=== PATIENT | female | born 1955 | race Caucasian/White ===

== ENCOUNTER 2017-11-10 11:02 | Emergency (ER) | payer BC, SELFPAY ==
[2017-11-10 11:03] VITALS: BP 163/135; PULSE 79; RESP 15; TEMP 36.7; O2SAT 98; BMI 32.5
[2017-11-10 11:20] VITALS: PULSE 70; RESP 16; O2SAT 96
--- NOTE | 2017-11-10 11:31 | CT_ITS ---
STUDY: CT BRAIN WITHOUT CONTRAST REASON FOR EXAM: Female, 62 years old. Headache and blurred vision. RADIATION DOSAGE (If Supplied By Facility): CTDIvol = ( 44.99 ) mGy, DLP = ( 762.36 ) mGycm TECHNIQUE: Transaxial CT imaging of the brain was performed without administration of intravenous contrast material. Multiplanar reformations are submitted for interpretation. Individualized dose optimization techniques were used for this CT. COMPARISON: None. FINDINGS: Normal soft tissue structures. Normal calvarium. There is mild cerebral atrophy with widening of the extra-axial spaces and ventricular dilatation. There are areas of decreased attenuation within the white matter tracts of the supratentorial brain, consistent with microvascular disease changes. Normal basal ganglia and thalami. Normal brainstem. Normal cerebellum. There is no intracranial hemorrhage. There is minimal atherosclerotic calcification of intracranial arteries. Normal visualized paranasal sinuses. CT/Brain/Head without Contrast IMPRESSION: 1. Chronic involutional changes of the brain. 2. No CT evidence of acute intracranial hemorrhage. Electronically Signed: Kelli Parson MD at 12:29 EST , Service support ,
[2017-11-10 11:55] LABS: Bedside Glucose 81 mg/dL (70-110)
[2017-11-10 11:56] VITALS: PULSE 68; RESP 16; O2SAT 97
--- NOTE | 2017-11-10 12:43 | ED.DCSUM_ITS ---
- ER Visit Summary Date of Service: 11/10/17 Chief Complaint: Blurred vision History of Present Illness: The patient is a 62 F who has been seen in the [facility] and also sees Dr. Ross. She reports that she was at the computer today at work at 9 AM when she had blurred vision from both eyes. She describes this as difficulty focusing and that her vision was slightly dark. She had no relief with covering one eye. She had no change with removing her glasses and looking closely. States that this is improving but is not resolved. She denies any pain. She reports that she has a headache in the maxillary region bilaterally that is 3 out of 10 severity. She denies any numbness, vertigo, double vision, flashing lights, or floaters. Physical Examination: Vitals: Stable. Afebrile. General: Well-nourished and well-developed. Head: Normocephalic atraumatic. Eyes: Pupils are equal, round, and reactive to light. There is no a fair pupillary defect. There is no conjunctival injection. Extraocular motions are intact without pain. Neck: Supple, no lymphadenopathy. No JVD. Nontender. Cardiovascular: Regular rate and rhythm. No murmurs. Respiratory: No respiratory distress. Clear to auscultation bilaterally. Abdominal: Soft, nontender, nondistended, normal bowel sounds. No guarding, rebound, or peritoneal signs. Back: Nontender. Extremities: Nontender, no edema. Skin: Normal color, no rash. Neurologic: Alert and oriented ?3. Cranial nerves II through XII are intact. Normal strength and sensation. Psych: Normal affect. Test Results: Vitals: Stable. Afebrile. General: Well-nourished and well-developed. Head: Normocephalic atraumatic. Neck: Supple, no lymphadenopathy. No JVD. Nontender. Cardiovascular: Regular rate and rhythm. No murmurs. Respiratory: No respiratory distress. Clear to auscultation bilaterally. Abdominal: Soft, nontender, nondistended, normal bowel sounds. No guarding, rebound, or peritoneal signs. Back: Nontender. Extremities: Nontender, no edema. Skin: Normal color, no rash. Neurologic: Alert and oriented ?3. Cranial nerves II through XII are intact. Normal strength and sensation. Psych: Normal affect. Test results: CT brain shows chronic changes. Visual acuity is 20/50 on the right, 20/50 on the left, and 20/40 bilaterally. Emergency Department Course and Treatment: The patient is resting comfortably without complaint. Treatment Plan: Patient was discussed with Dr. Wild. She will be sent over to his office for further evaluation. Disposition: Discharged in stable condition. Impression: 1. Blurred vision. This note was generated with [employer] dictation software. It may contain incorrect words, spelling, and punctuation that were not noted in review of the chart prior to signing ED Disposition - Plan for ED Patient: Disposition: Home or Assisted Living Chief Complaint: Eye Problem Instructions: ED Blurred Vision Referrals: Rui Wild MD [STAFF PHYSICIAN] - 11/10/17
[2017-11-10 12:47] VITALS: BP 133/87; PULSE 70; RESP 18; O2SAT 100
== END 2017-11-10 12:55 | disposition home or self-care (01) ==
PROVIDERS: Emergency Provider Emergency Medicine
DX: H53.8 Other visual disturbances (principal)
CPT/HCPCS: 70450; 82962; 99282

== ENCOUNTER → 2020-12-15 11:50 | Outpatient (CLI) | payer BC, SELFPAY ==
--- NOTE | 2020-12-15 11:59 | US_ITS ---
STUDY: RENAL ULTRASOUND - COMPLETE REASON FOR EXAM: Female, 65 years old. UTI TECHNIQUE: Ultrasound evaluation of the kidneys was performed with real-time and static persaud-scale imaging. COMPARISON: None. FINDINGS: RIGHT KIDNEY: Normal location of the right kidney, which is normal in size. The right kidney measures 11.3 cm x 5.5 cm x 4.7 cm. There is a normal cortex of the right kidney. The renal cortex measures 1.4 cm. There is no right renal mass or cyst. There are no right renal calculi. There is no right hydronephrosis. DISTAL RIGHT URETER: There is non-visualization of the distal right ureter. There is no demonstrated right ureterovesical junction calculus. There is a visualized right ureteral jet. LEFT KIDNEY: Normal location of the left kidney, which is normal in size. The left kidney measures 10.8 cm x 5 cm x 6 cm. There is a normal cortex of the left kidney. The renal cortex measures 1.5 cm. 2 renal cysts are seen. The larger cyst measures 1.5 cm x 1.5 cm x 1.1 cm. There are no left renal calculi. There is no left hydronephrosis. DISTAL LEFT URETER: There is non-visualization of the distal left ureter. There is no demonstrated left ureterovesical junction calculus. There is a visualized left ureteral jet. BLADDER: The distended urinary bladder has a volume of 100 ml. There is a normal wall thickness of the distended urinary bladder. There is no demonstrated mass within the urinary bladder. There are no demonstrated bladder calculi. US/Kidney and Bladder IMPRESSION: 2 left renal cysts. The largest cyst measures 1.5 cm x 1.5 cm x 1.1 cm. Electronically Signed: Yonatan Sarmiento MD at 15:24 EDT , Service support ,
== END ==
PROVIDERS: PCP Internal Medicine; Referring Provider Urology; Visit Provider Urology
DX: N39.0 Urinary tract infection, site not specified (principal)
CPT/HCPCS: 76770

== ENCOUNTER 2021-03-27 06:08 | Day surgery (SDC) | payer MEDICARE, BC, OTHER, SELFPAY ==
[2021-03-27 06:36] VITALS: BP 141/81; PULSE 72; RESP 16; TEMP 36.4; O2SAT 97; BMI 34.0
[2021-03-27] MEDS: Lactated Ringers 1,000 ML 100 ML IV (07:03)
[2021-03-27] MEDS: Cefazolin 2 GM in 0.9% Normal Saline 100 ML IV (07:26)
--- NOTE | 2021-03-27 07:27 | PCM.DC ---
Discharge Instructions Diet Discharge Diet: No restrictions Activity Discharge Activity: Return to Normal Activity May resume sexual activity in: 10-14 days Dressing / Incision Call your doctor if you observe: Fever of 101 or Higher, Inability to urinate, Inability to have a bowel movement and Uncontrolled pain Follow Up Care Please Follow Up With: Rosalinda Lee MD When: 2-3 weeks in office, call for appt Test Results: Test results from this visit will be discussed in further detail at your follow-up appointment, if applicable. Discharge Plan Admission Attending Provider: Rosalinda Lee Primary Care Provider: Dimitris Donato Discharge Orders/Prescriptions Prescriptions: New oxycodone-acetaminophen [oxycodone-acetaminophen] 1 TABLET tablet 1 tab PO Q8H PRN PRN (Reason: Pain) 3 Days Qty: 6 RF: 0 cephalexin [cephalexin] 500 MG capsule 500 mg PO Q12 3 Days Qty: 6 RF: 0 phenazopyridine [Pyridium] 200 MG tablet 200 mg PO TID PRN PRN (Reason: Bladder Spasms) 7 Days Qty: 30 RF: 0 Continued ascorbic acid (vitamin C) [Vitamin C] 500 mg Tablet 500 mg PO DAILY RF: 0 pantoprazole 40 mg Tablet,Delayed Release (Dr/Ec) 40 mg PO DAILY RF: 0 estradiol 0.01 % (0.1 mg/gram) cream 0.5 g VAGINAL .3 TIMES WEEKLY RF: 0 Referrals / Follow Up: Dimitris Donato MD [Primary Care Provider] - Disposition Disposition (needs filled in before D/C Order can be placed): Home, Self Care
--- NOTE | 2021-03-27 07:31 | PCM.OPRPT ---
Problems Associated Problem List Diagnoses (1) Urinary tract infection: (2) Urethral stenosis: Report of Operation Date of Procedure: 03/27/21 Pre-Operative Diagnosis: Urethral stenosis, urinary tract infection Post-Operative Diagnosis: Same, cystocele Surgery/Procedure Performed:: Urethral dilation, cystourethroscopy Surgeon: Rosalinda Lee Type of Anesthesia: MAC Description of Procedure: The patient is a 66-year-old female with recurrent urinary tract infections who was unable to undergo a cystoscopy in the office secondary to urethral stenosis. She now presents for further evaluation under anesthesia. Informed consent was obtained. The patient was taken to the operating room and placed on the operating room table. Anesthesia monitored the head, neck, airway, IV access and vital signs throughout the case. Once anesthesia was appropriately administered the patient was placed into dorsal lithotomy position was prepped and draped in usual sterile fashion. At this time it was obvious that there is more prolapse than initially thought on examination in the office. The patient has significant rotation of the bladder neck along with a mild cystocele. The urethra was dilated using sounds starting with 16 Tanzanian and ending with 24 Tanzanian. She tolerated this portion of the procedure well. The cystoscope was then inserted through the urethra under direct visualization into the urinary bladder. Bilateral ureteral orifices were located in the area of the trigone. There were no masses, lesions, areas of ulceration or erythema identified. Bilateral ureteral jets were observed. This time the patient's bladder was then emptied and the case was terminated. The patient tolerated the procedure without complication. Grafts/Implants Used: None Complications none Admit VTE Documentation VTE Present on Admission: Yes VTE Mechan Device Prophylaxis: SCD's VTE Pharm Prophylaxis ordered?: No Reason prophylaxis not ordered:: Treatment Not Indicated
[2021-03-27 07:50] VITALS: BP 121/70; BP 141/81; PULSE 60; RESP 16; TEMP 36.3; O2SAT 95
[2021-03-27 07:55] VITALS: BP 121/70; BP 141/81; PULSE 60; RESP 16; O2SAT 95
[2021-03-27 08:00] VITALS: BP 118/71; BP 141/81; PULSE 59; RESP 16; O2SAT 96
[2021-03-27 08:06] VITALS: BP 130/72; BP 141/81; PULSE 59; RESP 16; TEMP 36.1; O2SAT 97
[2021-03-27 08:55] VITALS: BP 122/68; BP 141/81; PULSE 58; RESP 16; TEMP 36.3; O2SAT 98
== END 2021-03-27 08:59 | disposition home or self-care (01) ==
LOC: SDC 06:19 → AC 06:20
PROVIDERS: PCP Internal Medicine; Referring Provider Urology; Visit Provider Urology
PROC: 0T7D8ZZ Dilation of Urethra, Via Natural or Artificial Opening Endoscopic (ICD-10-PCS; CPT 52281; principal; 2021-03-27 07:20)
DX: N35.92 Unspecified urethral stricture, female (principal); N39.0 Urinary tract infection, site not specified; K21.9 Gastro-esophageal reflux disease without esophagitis; Z79.899 Other long term (current) drug therapy; Z87.891 Personal history of nicotine dependence
CPT/HCPCS: 00910; 52281; J7120

== ENCOUNTER → 2022-11-07 | Outpatient (CLI) | payer MEDICARE, OTHER, SELFPAY ==
--- NOTE | 2022-11-07 08:11 | RAD_ITS ---
STUDY: X-RAY - ESOPHAGUS (BARIUM SWALLOW) WITH FLUOROSCOPY REASON FOR EXAM: Female, 67 years old. DYSPHAGIA TECHNIQUE: 15 view(s) of the esophagus were obtained following swallowing of barium. FLUOROSCOPY TIME (if supplied): (36 seconds) minutes/seconds COMPARISON: None. FINDINGS: There is no demonstrated esophageal foreign body. There is no demonstrated stricture or mucosal abnormality. Moderate-sized hiatal hernia without gastroesophageal reflux at this time. The patient ingested a 12 mm tablet of barium without difficulty. Normal visualized aortic arch and descending thoracic aorta. Normal visualized pulmonary parenchyma. Normal visualized osseous structures of the thorax. RAD/Esophagus Dual Contrast IMPRESSION: Moderate sized hiatal hernia without gastroesophageal reflux. Electronically Signed: Yonatan Sarmiento MD at 8:37 EST ,
== END | disposition home or self-care (01) ==
PROVIDERS: PCP Internal Medicine; Visit Provider Internal Medicine Gastroenterology
DX: R13.10 Dysphagia, unspecified (principal)
CPT/HCPCS: 74221

== ENCOUNTER → 2024-04-08 | Outpatient (CLI) | payer OTHER, MEDICARE, SELFPAY ==
[2024-04-08 15:37] LABS: Mucous, Urine 0 SEEN /hpf (<or=2+)
[2024-04-08 15:43] LABS: Color, Urine Yellow (Yellow); Glucose, Dipstick Normal (Normal); Ketone-Dipstick Negative (Negative); Leukocyte Esterase-Dipstick 500 /ul (Negative); Nitrite-Dipstick Negative (Negative); Occult Blood-Urine 25 /ul (Negative); Protein-Dipstick 15 mg/dl (Negative); Urine Bilirubin Dipstick Negative (Negative); Urine Clarity Clear (Clear); Urine Urobilinogen Normal (Normal); Urine pH 6.5 (5.0 - 8.0)
[2024-04-08 15:48] LABS: White Blood Cells 10-25 SEEN /hpf (0-5)
[2024-04-08 15:49] LABS: Bacteria 2+ /hpf (None Seen); Red Blood Cells-Urine 0-5 SEEN /hpf (0-5); Squamous Epithelial Cells - UA 0-5 SEEN /hpf (5-10)
== END | disposition home or self-care (01) ==
LOC: LABSPEC 15:25
PROVIDERS: PCP Internal Medicine; Referring Provider Physician Assistant Surgical; Visit Provider Physician Assistant Surgical
DX: R30.0 Dysuria (principal)
CPT/HCPCS: 81001; 87086; 87088; 87186

== ENCOUNTER 2025-05-18 12:31 | Emergency (ER) | payer MEDICARE, OTHER, SELFPAY ==
[2025-05-18 12:31] VITALS: BP 184/85; PULSE 69; RESP 18; TEMP 36.8; O2SAT 99; BMI 31.8
--- NOTE | 2025-05-18 13:13 | EX.ED.UPPERE ---
HPI History of Present Illness HPI Narrative: Patient presents with left shoulder pain that has been getting worse over the past week and a half. Patient states it is gradually getting worse. Patient states it is worse with certain movements. Patient states nothing makes it better. Patient does admit to some tingling into her left hand and wrist. Patient describes her pain as constant and dull. Patient states it is sharp with certain movements. Patient denies any weakness. Patient denies any direct trauma or injury. Chief Complaint: Upper Extremity Injury Onset/Context/Timing Onset: Weeks (1.5) Context: Gradual Onset Timing: Continuous Quality of Pain: Sharp and Dull Location: Left shoulder Worsened by: Movement Relieved by: Nothing Associated Symptoms Associated Symptoms: Positive for Parasthesia; Negative for Weakness or Loss of Funtion PFSH PFSH Medical History Urinary tract infection Urethral stenosis Wears glasses Alcohol use Injury of back History of hiatal hernia Gastric reflux Former smoker Leg cramps History of edema [place] esophagus Home Medications ?Medication ?Instructions ?Recorded ?Last Taken ?Type ascorbic acid (vitamin C) 500 mg 500 mg PO DAILY 03/20/21 Unknown History tablet (Vitamin C) Held on 05/18/25. Instructions: Order Completed estradiol 0.01% (0.1 mg/gram) 0.5 g vaginal .3 TIMES WEEKLY 03/20/21 Unknown History vaginal cream pantoprazole 40 mg tablet,delayed 40 mg PO DAILY 03/20/21 Unknown History release acetaminophen 650 mg 650 mg PO Q8H PRN pain 05/18/25 Unknown History tablet,extended release hydrocodone-acetaminophen 5-325mg 1 tab PO Q6H PRN PRN Pain 3 days 05/18/25 Unknown Rx 5mg-325mg #10 TABLETS Allergy/AdvReac Type Severity Reaction Status Date / Time meperidine (From Demerol) AdvReac Nausea Verified 05/18/25 12:33 Surgical History History of esophagogastroduodenoscopy (EGD) Hx of tonsillectomy Hx of hysterectomy Hx of colonoscopy Social History Smoking Status: Former smoker ROS ROS ED Constitutional Constitutional ED: Denies chills or fever(s) Eyes Eyes: Denies blurry vision or change in vision ENT ENT ED: Denies rhinorrhea or sore throat Cardiovascular Cardiovascular: Denies chest pain or palpitations Respiratory/Chest Respiratory/Chest: Denies cough or dyspnea Gastrointestinal Gastrointestinal: Reports nausea; Denies vomiting Genitourinary Genitourinary ED: Denies dysuria or hematuria Musculoskeletal Musculoskeletal: Reports neck pain; Denies back pain Integumentary Denies abscess or rash Neurologic Neurologic: Denies headache(s) or weakness Allergic/Immunologic Allergic/Immunologic ED: Denies mouth swelling or urticaria EXAM Physical Exam Const Vital Signs: 05/18/25 12:31 Temperature 98.2 F Temperature Source Oral Pulse Rate 69 Respiratory Rate 18 Blood Pressure 184/85 H Blood Pressure Mean 118 Pulse Ox 99 Oxygen Delivery Method Room Air Positive well nourished and well developed General Appearance ED: well developed and NAD HEENT Reports moist mucous membranes normocephalic and atraumatic Neck full ROM and supple Extremity Extremity Narrative: There is diffuse tenderness of the left shoulder. Range of motion was limited motions of the left shoulder secondary to pain. There is no bony crepitance or step-off. There is no deformity noted. There is no edema or ecchymosis. There is mild tenderness over the left trapezius muscle and paraspinal muscles. There is no midline tenderness. Radial pulses are equal bilaterally. Sensation is intact to light touch in the radial, median, ulnar, and axillary areas. Strength is 5/5 in the radial, median, and ulnar areas. Neuro oriented x3, CN's II-XII intact bilaterally, moves all extremities, no focal motor deficits and no sensory deficits noted Sensorium / Orientation: alert Motor Exam: strength 5/5 throughout Psych mental status grossly normal MDM MDM MDM Narrative Medical decision making narrative: Differential diagnosis includes degenerative arthritis, rotator cuff tear, tendinitis, and muscle strain. X-rays of the left shoulder will be obtained to assess for degenerative arthritis and occult fracture. Radiography Diagnostic Testing: X-rays of the left shoulder were obtained. There are 4 views. On my independent interpretation, there is no acute fracture or dislocation noted. There is no loose body noted. There are mild degenerative changes noted. Radiologist also interpreted the x-rays and agrees. Treatment and Re-Evaluation Narrative: Patient was given an ice pack. Patient was given a dose of [place] here. Patient was advised of her findings. Patient was instructed continue using ice to the area. Patient was given a sling for comfort. Patient was given a prescription for short course of [place]. Patient was given referral for primary care physician. Patient was also instructed to follow-up in 5 to 7 days for further evaluation. Patient was instructed to do range of motion exercises. Patient was instructed to return if worse in any way. Patient understood and was agreeable with the plan. All questions were answered. Discharge Plan Triage Chief Complaint: Upper Extremity Injury ED Provider: Conrado Zapata Dx/Rx/DC Orders Clinical Impression: Left shoulder strain, Elevated blood pressure reading Instructions: ED Shoulder Sprain Prescriptions: New hydrocodone-acetaminophen 5-325 mg tablet 1 tab PO Q6H PRN PRN (Reason: Pain) 3 Days Qty: 10 0RF No Action ascorbic acid (vitamin C) [Vitamin C] 500 mg Tablet 500 mg PO DAILY pantoprazole 40 mg Tablet,Delayed Release (Dr/Ec) 40 mg PO DAILY estradiol 0.01 % (0.1 mg/gram) cream 0.5 g VAGINAL .3 TIMES WEEKLY Patient Comments: APPLY 0.5 GRAMS VAGINALLY 3 TIMES PER WEEK FOR 3 MONTHS . START WITH EVERY NIGHT FOR 2 WEEKS THEN 3 TIMES A WEEK acetaminophen 650 mg tablet extended release 650 mg PO Q8H PRN (Reason: pain) Primary Care Provider: Care Physician,No Primary Referrals: Chloé Davis MD [Med Staff - Commissary Assistant] - 5-7 Days Care Physician,No Primary [Primary Care Provider] - Print Language: Guamanian Disposition Disposition: Home, Self Care
--- NOTE | 2025-05-18 13:18 | RAD_ITS ---
PROCEDURE: SHOULDER MIN 2 VIEWS 05/18/2025 REASON FOR EXAM: INJURY/PAIN TECHNIQUE: Procedure Code: RADSH Modality: DX Procedure: SHOULDER MIN 2 VIEWS Laterality: Left shoulder FINDINGS: Bones: No fracture. Joints: Normal alignment of the acromioclavicular and glenohumeral joints. Soft tissues: Soft tissues are unremarkable. Other: RAD/Shoulder min 2 Views IMPRESSION: NO ACUTE FRACTURE OR DISLOCATION. Reading Location: [place] [id number]
[2025-05-18] MEDS: HYDROcodone Bitartrate/Apap 5/325 Tablet PO (13:31)
[2025-05-18 14:55] VITALS: BP 175/86; PULSE 55; RESP 18; TEMP 37.1; O2SAT 100
== END 2025-05-18 15:08 | disposition home or self-care (01) ==
PROVIDERS: Emergency Provider Emergency Medicine; Visit Provider Emergency Medicine
DX: S46.912A Strain of unspecified muscle, fascia and tendon at shoulder and upper arm level, left arm, initial encounter (principal); R03.0 Elevated blood-pressure reading, without diagnosis of hypertension; Z87.891 Personal history of nicotine dependence; R20.2 Paresthesia of skin; K21.9 Gastro-esophageal reflux disease without esophagitis; X58.XXXA Exposure to other specified factors, initial encounter
CPT/HCPCS: 73030; 99283

== ENCOUNTER → 2025-06-30 | Outpatient (CLI) | payer MEDICARE, OTHER, SELFPAY ==
--- OUTSIDE RECORDS SUMMARY | 2025-06-30 16:33 | XMS RPT_ITS | CCD ---
Author Organization [facility] Care Team Providers Care Assembler Erector Name Role Phone BRO DONATO MD Consulting Unavailable LATOUBRO Grewal MD Primary Care Unavailable LATOUBRO Grewal MD Attending Unavailable LATOUBRO Grewal MD Admitting Unavailable PROVIDER, UNKNOWN Consulting Unavailable PROVIDER, UNKNOWN Consulting Unavailable PROVIDER, UNKNOWN Consulting Unavailable LATOUBRO Grewal MD Primary Care Unavailable LATOUFBRO MD Attending Unavailable LATOUBRO Grewal MD Consulting Unavailable LATOUBRO Grewal MD Admitting Unavailable PROVIDER, UNKNOWN Consulting Unavailable PROVIDER, UNKNOWN Consulting Unavailable PROVIDER, UNKNOWN Consulting Unavailable LATOUBRO Grewal MD Consulting Unavailable LATOUBRO Grewal MD Primary Care Unavailable LATOUFBRO MD Attending Unavailable LATOUBRO Grewal MD Admitting Unavailable PROVIDER, UNKNOWN Consulting Unavailable PROVIDER, UNKNOWN Consulting Unavailable PROVIDER, UNKNOWN Consulting Unavailable LATOUBRO Grewal MD Admitting Unavailable LATOUBRO Grewal MD Consulting Unavailable LATOUBRO Grewal MD Primary Care Unavailable LATOUCarmina, BRO LA Attending Unavailable PROVIDER, UNKNOWN Consulting Unavailable PROVIDER, UNKNOWN Consulting Unavailable PROVIDER, UNKNOWN Consulting Unavailable LATBRO COREAS MD Admitting Unavailable LATOUBRO Grewal MD Consulting Unavailable LATOUF, BRO AL Primary Care Unavailable LATOUF, BRO AL Attending Unavailable PROVIDER, UNKNOWN Consulting Unavailable PROVIDER, UNKNOWN Consulting Unavailable PROVIDER, UNKNOWN Consulting Unavailable LATOUBRO Grewal MD Primary Care Unavailable LATOUF, BRO AL Attending Unavailable LATOUFBRO MD Consulting Unavailable LATOUF, BRO AL Admitting Unavailable PROVIDER, UNKNOWN Consulting Unavailable PROVIDER, UNKNOWN Consulting Unavailable PROVIDER, UNKNOWN Consulting Unavailable LATOUBRO Grewal MD Consulting Unavailable LATOUBRO Grewal MD Primary Care Unavailable LATOUF, BRO AL Attending Unavailable LATOUF, BRO AL Admitting Unavailable PROVIDER, UNKNOWN Consulting Unavailable PROVIDER, UNKNOWN Consulting Unavailable PROVIDER, UNKNOWN Consulting Unavailable CSERERWIN CHRIS DO Admitting Unavailable CSERNYIK, ERWIN DO Primary Care Unavailable ERWIN RUBIO DO Attending Unavailable BRO DONATO MD Consulting Unavailable BRO DONATO MD Referring Unavailable PROVIDER, UNKNOWN Consulting Unavailable PROVIDER, UNKNOWN Consulting Unavailable PROVIDER, UNKNOWN Consulting Unavailable BRO DONATO MD Consulting Unavailable BRO DONATO MD Primary Care Unavailable BRO DONATO MD Attending Unavailable BRO DONATO MD Admitting Unavailable PROVIDER, UNKNOWN Consulting Unavailable PROVIDER, UNKNOWN Consulting Unavailable PROVIDER, UNKNOWN Consulting Unavailable Dr. Erwin Zapata DO Emergency Provider Care Physician, No Primary Primary Care Provider Unavailable Hans Velasquez MD Unavailable NONE, NONE Unavailable Unavailable Erwin Zapata Attending Unavailable Care Physician, No Primary Primary Care Unava ilable Allergies Allergy Classification Reported Allergen(s) Allergy Type Date of Onset Reaction(s) Facility (2 sources) Meperidine Drug Allergy 1 Nausea [facility] (1 source) Meperidine Drug Allergy [facility] Repository (1 source) Sulfonamides (Antibiotic) Drug allergy (disorder) [facility] Repository (1 source) Meperidine Drug Allergy 3 [facility] (1 source) Sulfacetamide Drug Allergy 3 [facility] [place] [facility] (1 source) Meperidine Drug Allergy 5 [facility] Repository Medications Current Medications Medication Drug Class(es) Dates Sig (Normalized) Sig (Original) 8 hr acetaminophen 650 mg extended release oral tablet (1 source) Start: 05-18-2025 take 1 tablet by mouth every eight hours as needed for pain Acetaminophen 650 mg tablet extended release Active 650 mg PO Q8H as needed for pain May 18, 2025 12:00am acetaminophen 325 mg / HYDROcodone bitartrate 5 mg oral tablet (1 source) Opioid Agonist Start: 05-18-2025 take 1 tablet by mouth every six hours as needed for pain Hydrocodone-Acetami nophen 5-325 mg tablet Active 1 {tbl} PO EVERY 6 HOURS NEEDED as needed for Pain 10 3 0 May 18, 2025 Strain of left shoulder ascorbic acid 500 mg oral tablet (2 sources) Vitamin C Start: 03-20-2021 take 1 tablet by mouth once daily Ascorbic Acid (Vitamin C) (Vitamin C) 500 mg Tablet Active 500 mg PO DAILY March 20, 2021 12:00am On Hold: Order Completed estradiol 0.1 mg/ml vaginal cream (2 sources) Estrogen Start: 03-20-2021 Estradiol 0.01 % (0.1 mg/gram) cream Active 0.5 g VAGINAL .3 TIMES WEEKLY March 20, 2021 12:00am pantoprazole 40 mg delayed release oral tablet (3 sources) Proton Pump Inhibitor Start: 03-20-2021 take 1 tablet by mouth once daily Pantoprazole 40 mg Tablet,Delayed Release (Dr/Ec) Active 40 mg PO DAILY March 20, 2021 12:00am Completed/Discontinued Medications Medication Drug Class(es) Dates Sig (Normalized) Sig (Original) acetaminophen 325 mg / oxyCODONE hydrochloride 5 mg oral tablet (2 sources) Opioid Agonist Start: 03-27-2021 End: 05-18-2025 Oxycodone-Acetamino phen 1 TABLET tablet Discontinued 1 {tbl} PO EVERY 8 HOURS NEEDED as needed for Pain 6 3 0 March 27, 2021 May 18, 2025 12:55pm Urethral stenosis Urinary tract infection Urinary tract infection, site not specified Start: 03-27-2021 take 1 tablet by irwin th every eight hours as needed Oxycodone-Acetaminophen Active 1 TABLET PO EVERY 8 HOURS NEEDED 6 3 March 27, 2021 cephalexin 500 mg oral capsule (2 sources) Cephalosporin Antibacterial Start: 03-27-2021 End: 05-18-2025 take 1 capsule by mouth every twelve hours Cephalexin 500 MG capsule Discontinued 500 mg PO EVERY 12 HOURS 6 3 0 March 27, 2021 12:00am May 18, 2025 12:55pm post-operative nitrofurantoin, macrocrystals 25 mg / nitrofurantoin, monohydrate 75 mg oral capsule (1 source) Nitrofuran Antibacterial Start: 04-08-2024 End: 04-15-2024 take 1 capsule by mouth every twelve hours at mealtime Nitrofurantoin Monohyd/M-Cryst 100 mg capsule Discontinued 1 NMA PO Q12H 14 7 0 April 08, 2024 12:00am April 14, 2024 12:00am April 15, 2024 12:03am administer with a meal/food; swallow whole; do not open, crush, dissolve , or chew phenazopyridine hydrochloride 200 mg oral tablet (2 sources) Start: 03-27-2021 End: 05-18-2025 take 1 tablet by mouth three times daily as needed for muscle spasms Phenazopyridine (Pyridium) 200 MG tablet Discontinued 200 mg PO 3 TIMES DAILY NEEDED as needed for Bladder Spasms 30 7 0 March 27, 2021 12:00am May 18, 2025 12:55pm Problems Active Problems Problem Classification Problem Date Documented Da te Episodic/Chronic Genitourinary symptoms and ill-defined conditions (1 source) Dysuria; Translations: [Dysuria] Onset: 11-18-2024 Episodic Nutritional deficiencies (2 sources) Vitamin D deficiency, unspecified; Translations: [Vitamin D deficiency, unspecified] Onset: 06-07-2024 Chronic Other circulatory disease (1 source) Elevated blood pressure; Translations: [Elevated blood-pressure reading, without diagnosis of hypertension] 05-18-2025 Episodic Other connective tissue disease (1 source) Trochanteric bursitis; Translations: [Trochanteric bursitis, left hip] Onset: 03-29-2025 03-29-2025 Episodic Other diseases of bladder and urethra (2 sources) Urethral stenosis; Translations: [Urethral stenosis] 03-27-2021 Episodic Other non-traumatic joint disorders (2 sources) Other specific arthropathies, not elsewhere classified, left shoulder; Translations: [Arthropathy, unspecified, shoulder region] Onset: 05-24-2025 05-24-2025 Chronic Other non-traumatic joint disorders (1 source) Pain in left shoulder; Translations: [Pain in left shoulder] Onset: 05-23-2025 Episodic Residual codes; unclassified (3 sources) Hypersomnia, unspecified; Translations: [Hypersomnia, unspecified] Onset: 03-11-2024 Chronic Residual codes; unclassified (1 source) Obstructive sleep apnea (adult) (pediatric); Translations: [Obstructive sleep apnea (adult) (pediatric)] Onset: 03-11-2024 Chronic Sprains and strains (1 source) Shoulder strain; Translations: [Strain of unspecified muscle, fascia and tendon at shoulder and upper arm level, left arm, initial encounter] 05-18-2025 Episodic Urinary tract infections (2 sources) Urinary tract infectious disease; Translations: [Urinary tract infection, site not specified] 03-27-2021 Episodic Past or Other Problems Problem Classification Problem Date Documented Da te Episodic/Chronic E Codes: Natural/environment (1 source) Bitten or stung by nonvenomous insect and other nonvenomous arthropods, initial encounter; Translations: [Bitten or stung by nonvenomous insect and other nonvenomous arthropods, initial encounter] Onset: 04-22-2024 Episodic Other gastrointestinal disorders (1 source) Dysphagia, unspecified; Translations: [Dysphagia, unspecified] Onset: 04-22-2024 Episodic Results Test Name Value Interpretation Reference Range Facility Relevant diagnostic tests/la boratory data Narrativeon 05-24-2025 Fall risk assessment no [employer] Work Phone: MEDS REVIEW Done [employer]. Work Phone: MEDS REVIEWD Medications reviewed with changes [employer] Work Phone: XRAY HX of the left shoulder on 05/18/2025 at [facility] [employer]. Work Phone: Emergency Department Summary on 05-18-2025 Emergency Department Summary [facility] Medical Records Department [address] [place] [address] Emergency Department Summary 05/18/25 MR#: [id number] Acct: [id number] Name: DOROTHEA SILVA Rep #: [id number] : 1955 70 From: Erwin Zapata DO PCP: Care Physician,No Primary Status:DEP ER Location: ED HPI History of Present Illness HPI Narrative: Patient presents with left shoulder pain that has been getting worse over the past week and a half. Patient states it is gradually getting worse. Patient states it is worse with certain movements. Patient states nothing makes it better. Patient does admit to some tingling into her left hand and wrist. Patient describes her pain as constant and dull. Patient states it is sharp with certain movements. Patient denies any weakness. Patient denies any direct trauma or injury. Chief Complaint: Upper Extremity Injury Onset/Context/Timing Onset: Weeks (1.5) Context: Gradual Onset Timing: Continuous Quality of Pain: Sharp and Dull Location: Left shoulder Worsened by: Movement Relieved by: Nothing Associated Symptoms Associated Symptoms: Positive for Parasthesia; Negative for Weakness or Loss of Funtion PFSH PFSH Medical History Urinary tract infection Urethral stenosis Wears glasses Alcohol use Injury of back History of hiatal hernia Gastric reflux Former smoker Leg cramps History of edema [place] esophagus Home Medications ???Medication ???Instructions ???Recorded ???Last Taken ???Type ascorbic acid (vitamin C) 500 mg 500 mg PO DAILY 03/20/21 Unknown H istory tablet (Vitamin C) Held on 05/18/25. Instructions: Order Completed estradiol 0.01% (0.1 mg/gram) 0.5 g vaginal .3 TIMES WEEKLY 03/05 Unknown History vaginal cream pantoprazole 40 mg tablet,delayed 40 mg PO DAILY 03/20/21 Unknown H istory release acetaminophen 650 mg 650 mg PO Q8H PRN pain 05/18/25 Un known History tablet,extended release hydrocodone-acetaminophen 5-325mg 1 tab PO Q6H PRN PRN Pain 3 days 05/18/25 Unknown Rx 5mg-325mg #10 TABLETS Allergy/AdvReac Type Severity Reaction Status Date / Time meperidine (From Demerol) AdvReac Nausea Verified 05/18/25 12:33 Surgical History History of esophagogastroduodenoscopy (EGD) Hx of tonsillectomy Hx of hysterectomy Hx of colonoscopy Social History Smoking Status: Former smoker ROS ROS ED Constitutional Constitutional ED: Denies chills or fever(s) Eyes Eyes: Denies blurry vision or change in vision ENT ENT ED: Denies rhinorrhea or sore throat Cardiovascular Cardiovascular: Denies chest pain or palpitations Respiratory/Chest Respiratory/Chest: Denies cough or dyspnea Gastrointestinal Gastrointestinal: Reports nausea; Denies vomiting Genitourinary Genitourinary ED: Denies dysuria or hematuria Musculoskeletal Musculoskeletal: Reports neck pain; Denies back pain Integumentary Denies abscess or rash Neurologic Neurologic: Denies headache(s) or weakness Allergic/Immunologic Allergic/Immunologic ED: Denies mouth swelling or urticaria EXAM Physical Exam Const Vital Signs: 05/18/25 12:31 Temperature 98.2 F Temperature Source Oral Pulse Rate 69 Respiratory Rate 18 Blood Pressure 184/85 H Blood Pressure Mean 118 Pulse Ox 99 Oxygen Delivery Method Room Air Positive well nourished and well developed General Appearance ED: well developed and NAD HEENT Reports moist mucous membranes normocephalic and atraumatic Neck full ROM and supple Extremity Extremity Narrative: There is diffuse tenderness of the left shoulder. Range of motion was limited motions of the left shoulder secondary to pain. There is no bony crepitance or step-off. There is no deformity noted. There is no edema or ecchymosis. There is mild tenderness over the left trapezius muscle and paraspinal muscles. There is no midline tenderness. Radial pulses are equal bilaterally. Sensation is intact to light touch in the radial, median, ulnar, and axillary areas. Strength is 5/5 in the radial, median, and ulnar areas. Neuro oriented x3, CN's II-XII intact bilaterally, moves all extremities, no focal motor deficits and no sensory deficits noted Sensorium / Orientation: alert Motor Exam: strength 5/5 throughout Psych mental status grossly normal MDM MDM MDM Narrative Medical decision making narrative: Differential diagnosis includes degenerative arthritis, rotator cuff tear, tendinitis, and muscle strain. X-rays of the left shoulder will be obtained to assess for degenerative arthritis and occult fracture. Radiography Diagnostic Testing: X-rays of the left shoulder (more content not included)... Normal [facility] Shoulder min 2 Viewson 05-18 Shoulder min 2 Views [facility] Imaging Services [address] [place], [place] [id number] Shoulder min 2 Views MR#: [id number] Acct: [id number] Name: DOROTHEA SILVA Rep #: [id number] : 1955 F 70 From: Yonatan huff MD PCP: Care Physician,No Primary Status: REG ER Study: Shoulder min 2 Views Date of Exam: 05/18/25 Exam# [id number] Ordering Dr: Erwin Zapata DO PROCEDURE: SHOULDER MIN 2 VIEWS 05/18/2025 REASON FOR EXAM: INJURY/PAIN TECHNIQUE: Procedure Code: RADSH Modality: DX Procedure: SHOULDER MIN 2 VIEWS Laterality: Left shoulder FINDINGS: Bones: No fracture. Joints: Normal alignment of the acromioclavicular and glenohumeral joints. Soft tissues: Soft tissues are unremarkable. Other: RAD/Shoulder min 2 Views IMPRESSION: NO ACUTE FRACTURE OR DISLOCATION. Reading Location: [place] [address] CC: Dr. Erwin Zapata, DO; No Primary Care Physician [employer] Worker: Signed Normal [facility] 3D MAMM UNILAT RT DIAGNOSTIC on 05-14-2024 3D MAMM UNILAT RT DIAGNOSTIC [place] [address] Patient: DOROTHEA SILVA Phone#: : 1955 Age: 69 Gender: F Pt. Type: Out Account: [id number] Location: [facility] Ordering: BRO DONATO Exam Date: 05/14/2024/12:57 Family Phys: Charge Code: 113139 Physician: Wayne Order #: [id number] Dose#: PROCEDURE: RIGHT DIAGNOSTIC BREAST TOMOSYNTHESIS MAMMOGRAM WITH CAD COMPARISON: [facility], 3D BILAT SCREEN, 05/06/2024, 11:10. INDICATIONS: Abnormal mammgram. BREAST COMPOSITION: Scattered areas fibroglandular density. FINDINGS: DIAGNOSTIC CATEGORY 1--NEGATIVE: RIGHT BREAST: No significant suspicious finding. RECOMMENDATIONS: ROUTINE MAMMOGRAM AND CLINICAL EVALUATION IN 12 MONTHS. PLEASE NOTE: A NORMAL MAMMOGRAM DOES NOT EXCLUDE THE POSSIBILITY OF BREAST CANCER. A CLINICALLY SUSPICIOUS PALPABLE LUMP SHOULD BE BIOPSIED. THIS FACILITY UTILIZES A REMINDER SYSTEM TO ENSURE THAT ALL PATIENTS RECEIVE REMINDER LETTERS FOR APPOINTMENTS. THIS INCLUDES REMINDERS FOR ROUTINE MAMMOGRAMS, DIAGNOSITC MAMMOGRAMS, OR OTHER BREAST IMAGING INTERVENTIONS WHEN APPROPRIATE. THIS PATIENT WILL BE PLACED IN THE APPROPRIATE REMINDER SYSTEM. Dictated by: Randi Donis MD on 05/14/2024 at 14:42 Approved by: Randi Donis MD on 05/14/2024 at 14:44 Normal [facility] 3D MAMM BILAT SCREENon 05-06 3D MAMM BILAT SCREEN [address] [address] Patient: DOROTHEA SILVA Phone#: : 1955 Age: 69 Gender: F Pt. Type: Out Account: [id number] Location: 052 Ordering: BUTROS LATOUF Exam Date: 05/06/2024/11:10 Family Phys: Charge Code: [id number] Physician: Wayne Order #: [id number] Dose#: PROCEDURE: BILATERAL SCREENING BREAST TOMOSYNTHESIS MAMMOGRAM WITH CAD COMPARISON: None. INDICATIONS: Baseline screening. BREAST COMPOSITION: Scattered areas fibroglandular density. FINDINGS: DIAGNOSTIC CATEGORY 0--INCOMPLETE: NEED ADDITIONAL IMAGING EVALUATION. RIGHT BREAST: ASYMMETRY visible on only the located in the lateral breast, at the anterior depth, with size of approximately 8x8 mm. Bilateral axillary lymph nodes, more numerous than typically present, though not enlarged. LEFT BREAST: No significant suspicious finding. RECOMMENDATIONS: ADDITIONAL MAMMOGRAPHIC VIEWS REQUIRED: RIGHT BREAST --We will call the patient back for additional views and issue an additional report. PLEASE NOTE: A NORMAL MAMMOGRAM DOES NOT EXCLUDE THE POSSIBILITY OF BREAST CANCER. A CLINICALLY SUSPICIOUS PALPABLE LUMP SHOULD BE BIOPSIED. THIS FACILITY UTILIZES A REMINDER SYSTEM TO ENSURE THAT ALL PATIENTS RECEIVE REMINDER LETTERS FOR APPOINTMENTS. THIS INCLUDES REMINDERS FOR ROUTINE MAMMOGRAMS, DIAGNOSITC MAMMOGRAMS, OR OTHER BREAST IMAGING INTERVENTIONS WHEN APPROPRIATE. THIS PATIENT WILL BE PLACED IN THE APPROPRIATE REMINDER SYSTEM. Dictated by: Sanjana Torres MD on 05/09/2024 at 21:43 Approved by: Sanjana Torres MD on 05/09/2024 at 21:56 Normal [facility] BONE DENSITY STUDYon 05-06- 024 Bone density scan [address] [address] Patient: DOROTHEA SILVA Phone#: : 1955 Age: 69 Gender: F Pt. Type: Out Account: [id number] Location: 052 Ordering: BUTROS LATOUF Exam Date: 05/06/2024/12:01 Family Phys: Charge Code: [id number] Physician: Wayne Order #: [id number] Dose#: PROCEDURE: BONE DENSITY STUDY TECHNIQUE: Lumbar vertebral and proximal femoral dual-energy X-ray absorptiometry (DXA) was performed on a central [employer] device. SPINE ANALYSIS RESULTS: Average lumbar bone mineral density (BMD) (g/cm2): 1.01 Lumbar T-score (standard deviation relative to young adult mean BMD): -1.4 Lumbar Z-score (standard deviation relative to age matched control group): -0.4 SPINE CLASSIFICATION: Osteopenia (T-score -1.0 to -2.5). HIP ANALYSIS RESULTS: Left femoral bone mineral density (BMD) (g/cm2): 0.919 Right femoral bone mineral density (BMD) (g/cm2): 0.966 Femur T-score (standard deviation relative to young adult mean BMD): -0.5 Femur Z-score (standard deviation relative to age matched control group): 0.5 HIP CLASSIFICATION (World Health Organization): Normal (T-score > -1.0). Note: The 2007 International Society for Clinical Densitometry (ISCD) Official Positions state that osteoporosis in chhaya-menopausal and post-menopausal women and in men age 50 and older may be diagnosed if the T-score of the lumbar spine, total hip, or femoral neck is -2.5 or less. Hip BMD is reported from the femoral neck or total proximal femur whichever is lowest. In pre-menopausal women and in men younger than age 50, T-scores may be used but Z-scores are preferred. In this patient group, a Z-score of -2.0 or lower is defined as below the expected range for age. FRAX is a computer-based algorithm which uses easily obtained clinical risk factors combined with femoral neck BMD or T-score to estimate an individual 10-year fracture probability. FRAX with BMD predicts fracture risk better than clinical risk factors or BMD alone. It is not appropriate to use FRAX to monitor treatment response. ADDITIONAL FINDINGS: No significant additional findings. Ten year probability of major osteoporotic fracture 14.2%. Ten year probability of hip fracture 1.6% Dictated by: Randi Donis MD on 05/06/2024 at 13:30 Continued Report - Page 2 of 2 Patient: DOROTHEA SILVA#: : 1955 Age: 69 Gender: F Pt. Type: Out Account: [id number] Location: [facility] Ordering: BRO DONATO Exam Date: 05/06/2024/12:01 Family Phys: Charge Code: [id number] Physician: Wayne Order #: [id number] Dose#: Approved by: Randi Donis MD on 05/06/2024 at 13:37 Normal [facility] LYME AB PANEL WBLOT [CCL]on 04-24-2024 RESULT CRITICAL? NO Normal [facility] Comment on above: Performed By: #### [id number] #### [facility],[address] [place] [address] Lyme IgG Bands p-41 Normal [facility] Comment on above: Performed By: #### [id number] #### [facility],[address] [place] [address] Lyme IgG Wblot Negative Normal Negative [facility] Comment on above: Result Comment: CDC criteria for a posit hussein Western blot are the presence of >=5 bands for IgG. Performed By: #### 2 [id number] #### [facility],[address] [place], [place] [id number] Lyme IgM Bands No Bands Seen Normal [facility] Comment on above: Performed By: #### [id number] #### [facility],[address] [place], [place] [id number] Lyme IgM Wblot Negative Normal Negative [facility] Comment on above: Result Comment: CDC criteria for a posit hussein Western Blot are the presence of >=2 bands for IgM. Performed By: #### 2 [id number] #### [facility],[address] [place], [place] [id number] Lyme Interp No evidence of antib odies to Borrelia burgdorferi. Normal [facility] Comment on above: Result Comment: [facility] [address] [place], [place] [address]Davis Ritchie III, M.D. [id number] Performed By: #### 2 [id number] #### [facility],[address] [place] [address] B. burgdorferi IgG+IgM IB Ql (S)on 04-22-2024 B. burgdorferi Ab band pattern IB (S) [Interp] No evidence of antibodies to Borrelia burgdorferi. Normal [facility] Comment on above: Order Comment: Specimen Type: BLOOD SPEC IMEN Ordering Facility: [facility] Address: [address] [place] [address] Performed By: #### 1 [id number] #### [facility] CLIA [id number] [address] [place] [address] [place] B. burgdorferi IgG band pattern IB (S) [Interp] p-[address] [facility] Comment on above: Order Comment: Specimen Type: BLOOD SPEC IMEN Ordering Facility: [facility] Address: [address] [place] [address] Performed By: #### 1 [id number] #### [facility] CLIA [id number] [address] [place] [address] [place] B. burgdorferi IgG IB Ql (S) Negative Normal Negative [facility] Comment on above: Order Comment: Specimen Type: BLOOD SPEC IMEN Ordering Facility: [facility] Address: [address] [place] [address] Result Comment: CDC criteria for a positive Western blot are the presence of >=5 bands for IgG. Performed By: #### 1 8203-0 #### [facility] CLIA [id number] [address] [place] [address] [place] B. burgdorferi IgM band pattern IB (S) [Interp] No Bands Seen Normal [facility] Comment on above: Order Comment: Specimen Type: BLOOD SPEC IMEN Ordering Facility: [facility] Address: [address] [place] [address] Performed By: #### 1 8203-0 #### [facility] CLIA [id number] [address] [place] [address] [place] B. burgdorferi IgM IB Ql (S) Negative Normal Negative [facility] Comment on above: Order Comment: Specimen Type: BLOOD SPEC IMEN Ordering Facility: [facility] Address: [address] [place] [address] Result Comment: CDC criteria for a positive Western Blot are the presence of >=2 bands for IgM. Performed By: #### 1 [id number] #### [facility] CLIA [id number] [address] [place] [address] [place] CBC + DIFFon 04-22-2024 Baso # 0.03 x10EE3/UL Normal 0.00 - 0.10 [facility] Comment on above: Performed By: #### [id number] #### [facility],[address] [place] [address] 32369 Basophils/100 WBC (Bld) 0.4 % Normal 0.0 - 2.0 [facility] Comment on above: Performed By: #### [id number] #### [facility],[address] [place] [address] 06587 CBC + DIFF Normal [facility] Comment on above: Result Comment: CBC-COMPLETE BLOOD COUNT Performed By: #### 2 [id number] #### [facility],[address] [place] [address] 10700 EO # 0.04 x10EE3/UL Normal 0.00 - 0.50 [facility] Comment on above: Performed By: #### [id number] #### [facility],[address] [place] [address] 74245 Eosinophils/100 WBC (Bld) 0.6 % Normal 0.0 - 7.0 [facility] Comment on above: Performed By: #### [id number] #### [facility],[address] [place] [address] 11468 Erythrocyte distribution width (RBC) [Ratio] 14.5 % Normal 12.0 - 15.6 [facility] Comment on above: Performed By: #### [id number] #### [facility],[address] [place] [address] Hematocrit (Bld) [Volume fraction] 37.8 % Normal 34.0 - 46.0 [facility] Comment on above: Performed By: #### [id number] #### [facility],[address] [place] [address] Hemoglobin (Bld) [Mass/Vol] 12.8 g/dL Normal 12.0 - 16.0 [facility] Comment on above: Performed By: #### [id number] #### [place] [address] Lymph # 1.34 x10EE3/UL Normal 0.80 - 2.80 [facility] Comment on above: Performed By: #### [id number] #### [place] [address] Lymphocytes/100 WBC (Bld) 21.5 % Normal 20.0 - 45.0 [facility] Comment on above: Performed By: #### [id number] #### [place] [address] MANUAL DIFF N/A Normal [facility] Comment on above: Performed By: #### [id number] #### [place] [address] MCH (RBC) [Entitic mass] 28 pg Normal 27 - 33 [facility] Comment on above: Performed By: #### [id number] #### [place] [address] MCHC 34 X10 3 Normal 32 - 36 [facility] Comment on above: Performed By: #### [id number] #### [place] [address] MCV (RBC) [Entitic vol] 81 fL Normal 80 - 99 [facility] Comment on above: Performed By: #### [id number] #### [facility],[address] [place] [address] 69026 [place] # 0.40 x10EE3/UL Normal 0.20 - 1.00 [facility] Comment on above: Performed By: #### [id number] #### [facility],[address] [place] [address] 29720 MONOS % 6.3 % Normal 0.0 - 10.0 [facility] Comment on above: Performed By: #### [id number] #### [facility],[address] [place] [address] 02752 Morphology Chele (Bld) [Interp] N/A Normal [facility] Comment on above: Performed By: #### [id number] #### [facility],[address] [place] [address] 82542 Neut # 4.45 x10EE3/UL Normal 1.50 - 7.10 [facility] Comment on above: Performed By: #### [id number] #### [facility],[address] [place] [address] 54844 Neutrophils/100 WBC (Bld) 71.2 % Normal 46.0 - 76.0 [facility] Comment on above: Performed By: #### [id number] #### [facility],[address] [place] [address] 49337 PLATELET 357 x10EE3/UL Normal 150 - 450 [facility] Comment on above: Performed By: #### [id number] #### [facility],[address] [place] [address] 07222 Platelet mean volume (Bld) [Entitic vol] 7.4 fL Normal 6.6 - 10.5 [facility] Comment on above: Result Comment: AUTOMATED DIFFERENTIAL Performed By: #### 2 [id number] #### [facility],[address] [place] [address] 09121 RBC 4.66 x 10EE6/UL Normal 4.10 - 5.30 [facility] Comment on above: Performed By: #### [id number] #### [facility],[address] [place] [address] 88844 WBC 6.3 x 10EE3/UL Normal 4.5 - 10.8 [facility] Comment on above: Performed By: #### [id number] #### [facility],[address] [place] [address] 82923 CMP with eGFRon 04-22-2024 AGE 69 years Normal [facility] Comment on above: Performed By: #### [id number] #### [facility],[address] [place] [address] 35577 Albumin [Mass/Vol] 3.8 g/dL Normal 3.4 - 5.0 [facility] Comment on above: Performed By: #### [id number] #### [facility],[address] [place] [address] 61737 Albumin/Globulin [Mass ratio] 1.1 {ratio} Normal 0.9 - 1.6 [facility] Comment on above: Performed By: #### [id number] #### [facility],[address] [place] [address] 26928 ALK PHOS 84 U/L Normal 46 - 116 [facility] Comment on above: Performed By: #### [id number] #### [facility],[address] [place] [address] 25015 ALT [Catalytic activity/Vol] 25 U/L Normal 16 - 63 [facility] Comment on above: Performed By: #### [id number] #### [facility],[address] [place] [address] 94535 Anion gap [Moles/Vol] 12 mmol/L Normal 10 - 20 [facility] Comment on above: Performed By: #### [id number] #### [facility],[address] [place] [address] 03134 AST [Catalytic activity/Vol] 18 U/L Normal 13 - 39 [facility] Comment on above: Performed By: #### [id number] #### [facility],[address] [place] [address] 26578 B/C RATIO 13 ratio Normal 0 - 30 [facility] Comment on above: Performed By: #### [id number] #### [facility],[address] [place] [address] 07106 Bilirubin [Mass/Vol] 0.7 mg/dL Normal 0.2 - 1.0 [facility] Comment on above: Performed By: #### [id number] #### [facility],[address] [place] [address] 39619 Calcium [Mass/Vol] 9.0 mg/dL Normal 8.5 - 10.1 [facility] Comment on above: Performed By: #### [id number] #### [facility],[address] [place] [address] 53681 Chloride [Moles/Vol] 102 mmol/L Normal 98 - 107 [facility] Comment on above: Performed By: #### [id number] #### [facility],[address] [place] [address] 17017 CMP with eGFR Normal [facility] Comment on above: Result Comment: COMPREHENSIVE METABOLIC PANEL Performed By: #### 2 [id number] #### [facility],[address] [place] [address] 09869 CO2 [Moles/Vol] 30.1 mmol/L Normal 21.0 - 32.0 [facility] Comment on above: Performed By: #### [id number] #### [facility],[address] [place] [address] 65245 Creatinine [Mass/Vol] 0.84 mg/dL Normal 0.55 - 1.02 [facility] Comment on above: Performed By: #### [id number] #### [facility],[address] [place] [address] 84994 GFR/1.73 sq M.predicted among non-blacks MDRD (S/P/Bld) [Vol rate/Area] mL/min/{1.73_m2} Normal 60 - 999 [facility] Comment on above: Performed By: #### [id number] #### [facility],[address] [place] [address] 51252 Result Comment: ACCO RDING TO THE NATIONAL KIDNEY DISEASE EDUCATION PROGRAM(NKDE), A NORMAL eGFR IS A VALUE GREATER THAN OR EQUAL TO 60 ML/MIN/1.73 SQ METERS. CHRONIC KIDNEY DISEASE: <60mL/MIN/1.73 SQ METERS KIDNEY FAILURE: <15mL/MIN/1.73 SQ METERS THIS TEST SHOULD ONLY BE USED FOR PATIENTS 18 YEARS OF AGE AND OLDER. Globulin (S) [Mass/Vol] 3.5 g/dL Normal 1.5 - 3.8 [facility] Comment on above: Performed By: #### [id number] #### [address] [address] Glucose [Mass/Vol] 94 mg/dL Normal 74 - 106 [facility] Comment on above: Performed By: #### [id number] #### [facility],[address] [place] [address] 12868 Potassium [Moles/Vol] 4.0 mmol/L Normal 3.5 - 5.1 [facility] Comment on above: Performed By: #### [id number] #### [facility],[address] [place] [address] 60743 Protein [Mass/Vol] 7.3 g/dL Normal 6.4 - 8.2 [facility] Comment on above: Performed By: #### [id number] #### [facility],[address] [place] [address] 95765 Sodium [Moles/Vol] 140 mmol/L Normal 136 - 145 [facility] Comment on above: Performed By: #### [id number] #### [facility],[address] [place] [address] 20979 Urea nitrogen [Mass/Vol] 11 mg/dL Normal 7 - 18 [facility] Comment on above: Performed By: #### [id number] #### [facility],[address] [place] [address] 89700 TSHon 04-22-2024 TSH Qn 1.12 m[IU]/L Normal 0.35 - 3.74 [facility] Comment on above: Performed By: #### [id number] #### [facility],[address] [place] [address] 30600 VITAMIN D, 25 HYDROXYon VitD 32.60 ng/mL Normal 30.00 - 100 [facility] Comment on above: Result Comment: 25-OHD3 indicates both e ndogenous production and supplementation. 25-OHD2 is an indicator of exogenous sources, such as diet or supplementation. Therapy is based on measurement of Total 25-OHD, with levels <20 ng/mL indicative of Vitamin D deficiency, while levels between 20 ng/mL and 30 ng/mL suggest insufficiency. Optimal levels are >=30ng/mL. Vitamin D, 25-OH D3 Not Established Vitamin D, 25-OH D2 Not Established Performed By: #### 2 [id number] #### [address] [address] Coronavirus 2019on 0 COVID 19 Result GALLERY MANAGER Normal Negative for COVID19 (SARS CoV2) by PCR. [facility] Comment on above: Result Comment: Negative for This test was developed and its performance characteristics determined by [facility] [place]. This test has been authorized by FDA under an Emergency Use Authorization (EUA). This test has been validated in accordance with the FDA's Guidance Document Policy for Diagnostics Testing in Laboratories Certified to Perform High Complexity Testing under CLIA prior to Emergency use Authorization for Coronavirus Disease 2019 during the Public Health Emergency issued on November 13, 2019. COVID19 (SARS This test was developed and its performance characteristics determined by [facility] [place]. This test has been authorized by FDA under an Emergency Use Authorization (EUA). This test has been validated in accordance with the FDA's Guidance Document Policy for Diagnostics Testing in Laboratories Certified to Perform High Complexity Testing under CLIA prior to Emergency use Authorization for Coronavirus Disease 2019 during the Public Health Emergency issued on November 13, 2019. CoV2) by PCR. This test was developed and its performance characteristics determined by [facility] [place]. This test has been authorized by FDA under an Emergency Use Authorization (EUA). This test has been validated in accordance with the FDA's Guidance Document Policy for Diagnostics Testing in Laboratories Certified to Perform High Complexity Testing under CLIA prior to Emergency use Authorization for Coronavirus Disease 2019 during the Public Health Emergency issued on November 13, 2019. COVID 19 Source GALLERY MANAGER Normal [facility] Comment on above: Result Comment: Nasopharyngeal Corrected on 08/23 AT 0427: Previously reported as GALLERY MANAGER Swab Corrected on 08/23 AT 0427: Previously reported as GALLERY MANAGER Hemoglobin A1con 09-11-2019 HbA1c (Bld) [Mass fraction] 5.4 % Normal 4.3-5.6 [facility] Comment on above: Performed By: #### HBA1C #### [facility]ine Lab [address] [place] [id number] HbA1c (Bld) [Mass fraction] 108 mg/dL Normal [facility] Comment on above: Performed By: #### HBA1C #### [facility] [address] [place] [address] Vital Signs Date Time Vital Sign Value Performing Clinician Facility 05-24-2025 10:040 Body height 163 cm Hans Velasquez MD Work Phone: [facility] 05-24-2025 10:[phone] Body height 162.56 cm Hans Velasquez MD Work Phone: [facility] 05-24-2025 10:[phone] Body mass index (BMI) [Ratio] 32.56 kg/m2 Hans Velasquez MD Work Phone: [facility] 05-24-2025 10:26-040 Body weight 86 kg Hans Velasquez MD Work Phone: [facility] 05-24-2025 10:26-0400 Body weight 85.73 kg Hans Velasquez MD Work Phone: [facility] 05-24-2025 10:26-0400 BP SITE #1 Hans Velasquez MD Work Phone: [facility] 05-24-2025 10:26-0400 Diastolic blood pressure 72 mm[Hg] Hans Velasquez MD Work Phone: [facility] 05-24-2025 10:26-0400 Heart rate 57 /min Hans Velasquez MD Work Phone: [facility] 05-24-2025 10:26-0400 HGHTCHNVIS Hans Velasquez MD Work Phone: [facility] 05-24-2025 10:26-0400 Systolic blood pressure 165 mm[Hg] Hans Velasquez MD Work Phone: [facility] 05-24-2025 10:26-0400 VITALSDONE Hans Velasquez MD Work Phone: [facility] 05-18-2025 14:55-0400 Body temperature 98.7 [degF] Dr. Erwin Zapata DO Work Phone: [facility] 05-18-2025 14:55-0400 Diastolic blood pressure 86 mm[Hg] Dr. Erwin Zapata DO Work Phone: [facility] 05-18-2025 14:55-0400 Heart rate 55 /min Dr. Erwin Zapata DO Work Phone: [facility] 05-18-2025 14:55-0400 Respiratory rate 18 /min Dr. Erwin Zapata DO Work Phone: [facility] 05-18-2025 14:55-0400 SaO2% (BldA) [Mass fraction] 100 % Dr. Erwin Zapata DO Work Phone: [facility] 05-18-2025 14:55-0400 Systolic blood pressure 175 mm[Hg] Dr. Erwin Zapata DO Work Phone: [facility] 05-18-2025 12:31-0400 Body height 165.[address] Erwin Zapata DO Work Phone: [facility] 05-18-2025 12:31-0400 Body mass index (BMI) [Ratio] 31.8 kg/m2 Dr. Erwin Zapata DO Work Phone: [facility] 05-18-2025 12:31-0400 Body weight 86.[address] Erwin Zapata DO Work Phone: [facility] Encounters Encounter Date Encounter Type Care Provider Facility Start: 05-24-2025 In-person encounter Hans castellano MD Work Phone: [facility] [place] [facility] Work Phone: Start: 05-24-2025 Visit out of hours Hans duvall MD Work Phone: [facility]. Work Phone: Start: 05-18-2025 End: 05-18-2025 Emergency department patient visit Dr. Erwin Zapata DO Work Phone: -Emergency Department Work Phone: Start: 11-18-2024 ambulatory [facility]O [facility] Start: 11-10-2024 ambulatory [facility] Start: 11-10-2024 Encounter for genera l adult medical examination without abnormal findings BRO [facility] Start: 06-07-2024 ambulatory [facility]O [facility] Start: 05-14-2024 End: 05-14-2024 ambulatory [facility] Start: 05-06-2024 End: 05-06-2024 ambulatory BRO AL [facility] Start: 04-22-2024 End: 04-22-2024 ambulatory BRO [facility] Start: 04-08-2024 End: 04-08-2024 ambulatory BRO [facility] Start: 03-11-2024 End: 03-12-2024 ambulatory BRO [facility] Start: 12-28-2023 End: 12-28-2023 Emergency department patient visit ERWIN KUHN [facility] Start: 11-07-2022 End: 11-07-2022 ambulatory [facility] Work Phone: Start: 11-07-2022 End: 11-07-2022 Patient encounter procedure [facility]-Radiology, [facility] Procedures Date Procedure Procedure Detail Performing Clinician Start: 05-24-2025 BMI documented as ab ove normal parameters - follow-up documented Hans Velasquez MD Work Phone: Start: 05-24-2025 Current tobacco non- user cad cap copd pv dm Hans Velasquez MD Work Phone: Start: 05-24-2025 Documentation of cur rent medications Hans Velasquez MD Work Phone: Start: 05-24-2025 Pain assessment docu mented as positive - follow-up documented Hans Velasquez MD Work Phone: Start: 05-24-2025 Arthrocentesis aspir &/inj major jt/bursa w/o us Hans Velasquez MD Work Phone: Start: 05-24-2025 Injection - triamcin olone acetonide 10 mg Hans Velasquez MD Work Phone: Start: 05-24-2025 Physical therapy management Hans Velasquez MD Work Phone: Start: 05-18-2025 Plain X-ray of shoulder Dr. Erwin Zapata DO Work Phone: Start: 11-07-2022 Radiography of esophagus Plan of Treatment Date Care Activity Detail Author Start: 05-24-2025 End: 05-24-2025 [employer]. Work Phone: Start: 05-18-2025 [facility] Patient Education ED Shoulder Sprain [facility] Work Phone: Payers Date Payer Category Payer Self-pay [id number] 2025 Unknown [id number] 2021 Medicare [id number] 1955 Unknown [id number] 2.16.8 [id number] 1954 Unknown [id number] 2.16.8 [id number] 1954 Unknown [id number] 2.16.8 [id number] 1954 Unknown [id number] 2.16.8 [id number] 1954 Unknown [id number] 2.16.8 [id number] 1954 Unknown [id number] 2.16.8 [id number] 1954 Unknown [id number] 2.16.8 [id number] 1954 Unknown [id number] 2.16.8 [id number] 1955 Unknown [id number] 2.16.8 [id number] Unknown [id number] Unknown [facility] *DO NOT USE* [id number] Unknown [id number] 2.16.8 [id number] Social History Date Type Detail Facility Start: 03-20-2021 Tobacco smoking stat [facility] Unknown if ever smoked [facility] Start: 1955 Sex Assigned At Female [facility] Start: 05-18-2025 Tobacco smoking stat [facility] Ex-smoker (finding) [facility] Start: 05-24-2025 social history reviewed E&M Done [employer] Work Phone: Start: 05-24-2025 Tobacco smoking status Never s moked any substance (finding) [employer] Work Phone: Radiology Diagnostic study note 05-18-2025 Note Date & Type Note Facility 05-18-2025 Radiology Diagnostic study note [facility] Imaging Services [address] [place] [address] [id number] Shoulder min 2 Views MR#: [id number] Acct: [id number] Name: DOROTHEA SILVA Rep #: [id number] F [id number] From: Raymundo Sarmiento MD PCP: Care Physician,No Primary Status: REG ER Study:Shoulder min 2 Views Date of Exam: 05/18/25 Exam# [id number] Ordering Dr: Erwin Zapata DO PROCEDURE: SHOULDER MIN 2 VIEWS 05/18/2025 REASON FOR EXAM: INJURY/PAIN TECHNIQUE: Procedure Code: RADSH Modality: DX Procedure: SHOULDER MIN 2 VIEWS Laterality: Left shoulder FINDINGS: Bones: No fracture. Joints: Normal alignment of the acromioclavicular and glenohumeral joints. Soft tissues: Soft tissues are unremarkable. Other: RAD/Shoulder min 2 Views IMPRESSION: NO ACUTE FRACTURE OR DISLOCATION. Reading Location: [facility] CC: Dr. Erwin Zapata, ; No Primary Care Physician ~ [place] Worker: Signed [facility] Evaluation note Note Date & Type Note Facility Evaluation note No assessment information availa ble [facility] Work Phone: Reason for referral (narrative) Note Date & Type Note Facility Reason for referral (narrative) No reason for referral information available [facility] Work Phone: Summary Purpose Family History No Family History Records Found Family Member Condition Mother Father Advance Directives No Advanced Directives Records Found Advance Directive Response Recorded Date/ Time Living Will No March 20, 2021 1 :09pm Power of File Drawer Finisher No March 20, 2021 1:09pm Advance Directive Response Recorded Date/ Time Do you have a Healthcare Power of File Drawer Finisher? No May 18, 2025 12:48pm Chief Complaint and Reason for Visit Chief Complaint DYSPHAGIA Chief Complaint Admit Date Shoulder pain May 18, 2025 12:31pm Additional Source Comments INFORMATION SOURCE (unrecogn ized section and content) DATE CREATED AUTHOR 08/25/2020 [facility] DATE CREATED AUTHOR AUTHOR'S ORGANIZ ATION 04/26/[address] [facility] DATE CREATED AUTHOR AUTHOR'S ORGANIZ ATION 11/20/2024 [facility] DATE CREATED AUTHOR AUTHOR'S ORGANIZ ATION 05/25/2025 [facility] Care Teams (unrecognized sec tion and content) Team Status: Active Member Role Status Dates No Primary Care Physician Family Provider Active Dr. Bro Donato MD Primary Care Provider Active Team Status: Inactive Member Role Status Dates Dr. Bro Donato MD Primary Care Provider Active Dr. Audie Lui MD Attending Provider Active Team Status: Active Member Role/Relationship Status Dates No Primary Care Physician Primary Care Provider Active Team Status: Inactive Member Role/Relationship Status Dates Dr. Erwin Zapata DO Emergency Provider Active Start: May 18, 2025 End: May 18, 2025 No Primary Care Physician Primary Care Provider Active Start: May 18, 2025 End: May 18, 2025 Goals (unrecognized section and content) Goals may be documented in a n alternate sectionGoals may be documented in an alternate section No Information Available REASON FOR VISIT (unrecogniz ed section and content) left shoulder pain, New/Est - 1st visit with physician FOR RECORDS PERTAINING TO PATIENTS WHO ARE OR HAVE BEEN ENROLLED IN A CHEMICAL DEPENDENCY/SUBSTANCEABUSE PROGRAM, SOME INFORMATION MAY BE OMITTED. This clinical summary was aggregated from multiple sources. Caution should be exercised in using it in the provision of clinical care. This summary normalizes information from multiple sources, and as a consequence, information in this document may materially change the coding, format and clinical context of patient data. In addition, data may be omitted in some cases. CLINICAL DECISIONS SHOULD BE BASED ON THE PRIMARY CLINICAL RECORDS. [facility] provides no warranty or guarantee of the accuracy or completeness of information in this document.
--- OUTSIDE RECORDS SUMMARY | 2025-06-30 16:33 | XMS RPT_ITS | CCD ---
Author Organization [facility] Care Team Providers Care Neurosurgical Nurse Practitioner Name Role Phone BRO DONATO MD Consulting Unavailable LATOUBOR Grewal MD Primary Care Unavailable LATOUBRO Grewal [...] Grewal MD Primary Care Unavailable LATOUCarmina, BRO AL Attending Unavailable PROVIDER, UNKNOWN Consulting [...] (2 sources) Meperidine Drug Allergy 1 Nausea [facility] (1 source) Meperidine Drug Allergy [facility] Repository (1 source) Sulfonamides (Antibiotic) Drug allergy (disorder) [facility] Repository (1 source) Meperidine Drug Allergy 3 [facility] (1 source) Sulfacetamide Drug Allergy 3 [facility] (1 source) Meperidine Drug Allergy 5 [facility] Repository Medications Current Medications Medication Drug Class(es) [...] data Narrativeon 05-24-2025 Fall risk assessment no [employer] Work Phone: MEDS REVIEW Done [employer]. Work Phone: MEDS REVIEWD Medications reviewed with changes [employer] Work Phone: XRAY HX of the left shoulder on 05/18/2025 at [facility] [employer]. Work Phone: Emergency Department Summary on 05-18-2025 Emergency Department Summary [facility] Medical Records Department [address] [place] [address] Emergency Department Summary 05/18/25 MR#: [id number] Acct: [id number] Name: DOROTHEA SILVA Rep #: [id number] : 1955 70 From: Erwin Zapata DO [...] left shoulder (more content not included)... Normal [facility] Shoulder min 2 Viewson 05-18 Shoulder min 2 Views [facility] Services [address] [place], [place] [address] Shoulder min 2 Views MR#: [id number] Acct: [id number] Name: DOROTHEA SILVA Rep #: [id number] : 1955 F 70 From: Yonatan huff MD PCP: Care Physician,No Primary Status: REG ER Study: Shoulder min 2 Views Date of Exam: 05/18/25 Exam# [id number] Ordering Dr: Erwin Zapata DO PROCEDURE: SHOULDER MIN 2 VIEWS 05/18/2025 REASON FOR EXAM: INJURY/PAIN TECHNIQUE: Procedure Code: RADSH Modality: DX Procedure: SHOULDER MIN 2 VIEWS Laterality: Left shoulder FINDINGS: Bones: No fracture. Joints: Normal alignment of the acromioclavicular and glenohumeral joints. Soft tissues: Soft tissues are unremarkable. Other: RAD/Shoulder min 2 Views IMPRESSION: NO ACUTE FRACTURE OR DISLOCATION. Reading Location: [place] [address] CC: Dr. Erwin Zapata, DO; No Primary Care Physician Acquisition Marketing Manager: Signed Normal [facility] 3D MAMM UNILAT RT DIAGNOSTIC on 05-14-2024 3D MAMM UNILAT RT DIAGNOSTIC [place] [address] Patient: DOROTHEA SILVA Phone#: : 1955 Age: 69 Gender: F Pt. Type: Out Account: [id number] Location: [facility] Ordering: BRO DONATO Exam Date: 05/14/2024/12:57 Family Phys: Charge Code: [id number] Physician: Glades Order #: [id number] Dose#: PROCEDURE: RIGHT DIAGNOSTIC BREAST TOMOSYNTHESIS MAMMOGRAM WITH CAD COMPARISON: [facility], 3D BILAT SCREEN, 05/06/2024, 11:10. INDICATIONS: [...] Donis MD on 05/14/2024 at 14:44 Normal [facility] 3D MAMM BILAT SCREENon 05-06 3D MAMM BILAT SCREEN [address] [address] Patient: DOROTHEA SILVA Phone#: : 1955 Age: 69 Gender: F Pt. Type: Out Account: [id number] Location: 052 Ordering: BUTROS LATOUF Exam Date: 05/06/2024/11:10 Family Phys: Charge Code: [id number] Physician: Glades Order #: [id number] Dose#: PROCEDURE: BILATERAL SCREENING BREAST TOMOSYNTHESIS MAMMOGRAM [...] Torres MD on 05/09/2024 at 21:56 Normal [facility] BONE DENSITY STUDYon 05-06- 024 Bone density scan [address] [address] Patient: DOROTHEA SILVA Phone#: : 1955 Age: 69 Gender: F Pt. Type: Out Account: [id number] Location: 052 Ordering: BUTROS LATOUF Exam Date: 05/06/2024/12:01 Family Phys: Charge Code: [id number] Physician: Glades Order #: [id number] Dose#: PROCEDURE: BONE DENSITY STUDY TECHNIQUE: Lumbar vertebral and proximal femoral dual-energy X-ray absorptiometry (DXA) was performed on a central tracx device. SPINE ANALYSIS RESULTS: Average lumbar bone [...] 69 Gender: F Pt. Type: Out Account: [id number] Location: [facility] Ordering: BRO DONATO Exam Date: 05/06/2024/12:01 Family Phys: Charge Code: [id number] Physician: Glades Order #: [id number] Dose#: Approved by: Randi Donis MD on 05/06/2024 at 13:37 Normal [facility] LYME AB PANEL WBLOT [CCL]on 04-24-2024 RESULT CRITICAL? NO Normal [facility] Comment on above: Performed By: #### [id number] #### [facility],[address] [place] [address] Lyme IgG Bands p-41 Normal [facility] Comment on above: Performed By: #### [id number] #### [facility],[address] [place] [address] Lyme IgG Wblot Negative Normal Negative [facility] Comment on above: Result Comment: CDC criteria for a posit hussein Western blot are the presence of >=5 bands for IgG. Performed By: #### 2 13137 #### [facility],[address] [place], [place] [phone] Lyme IgM Bands No Bands Seen Normal [facility] Comment on above: Performed By: #### [id number] #### [facility],[address] [place], [place] [phone] Lyme IgM Wblot Negative Normal Negative [facility] Comment on above: Result Comment: CDC criteria for a posit hussein Western Blot are the presence of >=2 bands for IgM. Performed By: #### 2 54321 #### [facility],[address] [place], [place] [phone] Lyme Interp No evidence of antib odies to Borrelia burgdorferi. Normal [facility] Comment on above: Result Comment: [facility] [address] [place], [place] [address]Davis Ritchie III, M.D. [id number] Performed By: #### 2 69386 #### Erik [facility],[address] [place] [address] B. burgdorferi IgG+IgM IB Ql (S)on 04-22-2024 B. burgdorferi Ab band pattern IB (S) [Interp] No evidence of antibodies to Borrelia burgdorferi. Normal [facility] Comment on above: Order Comment: Specimen Type: BLOOD SPEC IMEN Ordering Facility: [facility] Address: [address] [place] [address] Performed By: #### 1 8203-0 #### [facility] CLIA [id number] [address] [place] [address] [place] B. burgdorferi IgG band pattern IB (S) [Interp] p-41 Normal [facility] Comment on above: Order Comment: Specimen Type: BLOOD SPEC IMEN Ordering Facility: [facility] Address: [address] [place] [address] Performed By: #### 1 8203-0 #### [facility] CLIA [id number] [address] [place] [address] [place] B. burgdorferi IgG IB Ql (S) Negative Normal Negative [facility] Comment on above: Order Comment: Specimen Type: BLOOD SPEC IMEN Ordering Facility: [facility] Address: [address] [place] [address] Result Comment: CDC criteria for a positive Western blot are the presence of >=5 bands for IgG. Performed By: #### 1 8203-0 #### [facility] CLIA [id number] [address] [place] [address] [place] B. burgdorferi IgM band pattern IB (S) [Interp] No Bands Seen Normal [facility] Comment on above: Order Comment: Specimen Type: BLOOD SPEC IMEN Ordering Facility: [facility] Address: [address] [place] [address] Performed By: #### 1 8203-0 #### [facility] CLIA [id number] [address] [facility] [place] [place] [address] [place] B. burgdorferi IgM IB Ql (S) Negative Normal Negative [facility] Comment on above: Order Comment: Specimen Type: BLOOD SPEC IMEN Ordering Facility: [facility] Address: [address] [place] [address] Result Comment: CDC criteria for a positive Western Blot are the presence of >=2 bands for IgM. Performed By: #### 1 8203-0 #### [facility] CLIA [id number] [address] [place] [address] [place] CBC + DIFFon 04-22-2024 Baso # 0.03 x10EE3/UL Normal 0.00 - 0.10 [facility] Comment on above: Performed By: #### 036031 #### [facility],[address] [place] [address] Basophils/100 WBC (Bld) 0.4 % Normal 0.0 - 2.0 [facility] Comment on above: Performed By: #### [id number] #### [facility],[address] [place] [address] CBC + DIFF Normal [facility] Comment on above: Result Comment: CBC-COMPLETE BLOOD COUNT Performed By: #### 2 33448 #### [facility],[address] [place] [address] EO # 0.04 x10EE3/UL Normal 0.00 - 0.50 [facility] Comment on above: Performed By: #### [id number] #### [facility],[address] [place] [address] Eosinophils/100 WBC (Bld) 0.6 % Normal 0.0 - 7.0 [facility] Comment on above: Performed By: #### 086431 #### [facility],[address] [place] [address] Erythrocyte distribution width (RBC) [Ratio] 14.5 % Normal 12.0 - 15.6 [facility] Comment on above: Performed By: #### [id number] #### [facility],[address] [place] [address] Hematocrit (Bld) [Volume fraction] 37.8 % Normal 34.0 - 46.0 [facility] Comment on above: Performed By: #### 849158 #### [facility],[address] [place] [address] Hemoglobin (Bld) [Mass/Vol] 12.8 g/dL Normal 12.0 - 16.0 [facility] Comment on above: Performed By: #### 791224 #### [place] [address] Lymph # 1.34 x10EE3/UL Normal 0.80 - 2.80 [facility] Comment on above: Performed By: #### 626406 #### [place] [address] Lymphocytes/100 WBC (Bld) 21.5 % Normal 20.0 - 45.0 [facility] Comment on above: Performed By: #### 953176 #### [place] [address] MANUAL DIFF N/A Normal [facility] Comment on above: Performed By: #### 132437 #### [place] [address] MCH (RBC) [Entitic mass] 28 pg Normal 27 - 33 [facility] Comment on above: Performed By: #### 300644 #### [place] [address] MCHC 34 X10 3 Normal 32 - 36 [facility] Comment on above: Performed By: #### 167839 #### [place] [address] MCV (RBC) [Entitic vol] 81 fL Normal 80 - 99 [facility] Comment on above: Performed By: #### [id number] #### [facility],[address] [place] [address] [place] # 0.40 x10EE3/UL Normal 0.20 - 1.00 [facility] Comment on above: Performed By: #### [id number] #### [facility],[address] [place] [address] MONOS % 6.3 % Normal 0.0 - 10.0 [facility] Comment on above: Performed By: #### [id number] #### [facility],[address] [place] [address] Morphology Chele (Bld) [Interp] N/A Normal [facility] Comment on above: Performed By: #### [id number] #### [facility],[address] [place] [address] Neut # 4.45 x10EE3/UL Normal 1.50 - 7.10 [facility] Comment on above: Performed By: #### 078661 #### [facility],[address] [place] [address] Neutrophils/100 WBC (Bld) 71.2 % Normal 46.0 - 76.0 [facility] Comment on above: Performed By: #### 114964 #### [facility],[address] [place] [address] PLATELET 357 x10EE3/UL Normal 150 - 450 [facility] Comment on above: Performed By: #### [id number] #### [facility],[address] [place] [address] Platelet mean volume (Bld) [Entitic vol] 7.4 fL Normal 6.6 - 10.5 [facility] Comment on above: Result Comment: AUTOMATED DIFFERENTIAL Performed By: #### 2 04152 #### [facility],[address] [place] [address] RBC 4.66 x 10EE6/UL Normal 4.10 - 5.30 [facility] Comment on above: Performed By: #### [id number] #### [facility],[address] [place] [address] WBC 6.3 x 10EE3/UL Normal 4.5 - 10.8 [facility] Comment on above: Performed By: #### 732698 #### [facility],[address] [place] [address] CMP with eGFRon 04-22-2024 AGE 69 years Normal [facility] Comment on above: Performed By: #### [id number] #### [facility],[address] [place] [address] Albumin [Mass/Vol] 3.8 g/dL Normal 3.4 - 5.0 [facility] Comment on above: Performed By: #### [id number] #### [facility],[address] [place] [address] Albumin/Globulin [Mass ratio] 1.1 {ratio} Normal 0.9 - 1.6 [facility] Comment on above: Performed By: #### [id number] #### [facility],[address] [place] [address] ALK PHOS 84 U/L Normal 46 - 116 [facility] Comment on above: Performed By: #### [id number] #### [facility],[address] [place] [address] ALT [Catalytic activity/Vol] 25 U/L Normal 16 - 63 [facility] Comment on above: Performed By: #### [id number] #### [facility],[address] [place] [address] Anion gap [Moles/Vol] 12 mmol/L Normal 10 - 20 [facility] Comment on above: Performed By: #### [id number] #### [facility],[address] [place] [address] AST [Catalytic activity/Vol] 18 U/L Normal 13 - 39 [facility] Comment on above: Performed By: #### [id number] #### [facility],[address] [place] [address] B/C RATIO 13 ratio Normal 0 - 30 [facility] Comment on above: Performed By: #### [id number] #### [facility],[address] [place] [address] Bilirubin [Mass/Vol] 0.7 mg/dL Normal 0.2 - 1.0 [facility] Comment on above: Performed By: #### [id number] #### [facility],[address] [place] [address] Calcium [Mass/Vol] 9.0 mg/dL Normal 8.5 - 10.1 [facility] Comment on above: Performed By: #### [id number] #### [facility],[address] [place] [address] Chloride [Moles/Vol] 102 mmol/L Normal 98 - 107 [facility] Comment on above: Performed By: #### [id number] #### [facility],[address] [place] [address] CMP with eGFR Normal [facility] Comment on above: Result Comment: COMPREHENSIVE METABOLIC PANEL Performed By: #### 2 14742 #### [facility],[address] [place] [address] CO2 [Moles/Vol] 30.1 mmol/L Normal 21.0 - 32.0 [facility] Comment on above: Performed By: #### [id number] #### [facility],[address] [place] [address] Creatinine [Mass/Vol] 0.84 mg/dL Normal 0.55 - 1.02 [facility] Comment on above: Performed By: #### [id number] #### [facility],[address] [place] [address] GFR/1.73 sq M.predicted among non-blacks MDRD (S/P/Bld) [Vol rate/Area] mL/min/{1.73_m2} Normal 60 - 999 [facility] Comment on above: Performed By: #### [id number] #### [facility],[address] [place] [address] Result Comment: ACCO RDING TO THE NATIONAL KIDNEY DISEASE EDUCATION PROGRAM(NKDE), A NORMAL eGFR IS A VALUE GREATER THAN OR EQUAL TO 60 ML/MIN/1.73 SQ METERS. CHRONIC KIDNEY DISEASE: <60mL/MIN/1.73 SQ METERS KIDNEY FAILURE: <15mL/MIN/1.73 SQ METERS THIS TEST SHOULD ONLY BE USED FOR PATIENTS 18 YEARS OF AGE AND OLDER. Globulin (S) [Mass/Vol] 3.5 g/dL Normal 1.5 - 3.8 [facility] Comment on above: Performed By: #### [id number] #### [address] [address] Glucose [Mass/Vol] 94 mg/dL Normal 74 - 106 [facility] Comment on above: Performed By: #### [id number] #### [facility],[address] [place] [address] Potassium [Moles/Vol] 4.0 mmol/L Normal 3.5 - 5.1 [facility] Comment on above: Performed By: #### [id number] #### [facility],[address] [place] [address] Protein [Mass/Vol] 7.3 g/dL Normal 6.4 - 8.2 [facility] Comment on above: Performed By: #### [id number] #### [facility],[address] [place] [address] Sodium [Moles/Vol] 140 mmol/L Normal 136 - 145 [facility] Comment on above: Performed By: #### [id number] #### [facility],[address] [place] [address] Urea nitrogen [Mass/Vol] 11 mg/dL Normal 7 - 18 [facility] Comment on above: Performed By: #### [id number] #### [facility],[address] [place] [address] TSHon 04-22-2024 TSH Qn 1.12 m[IU]/L Normal 0.35 - 3.74 [facility] Comment on above: Performed By: #### [id number] #### [facility],[address] [place] [address] VITAMIN D, 25 HYDROXYon VitD 32.60 ng/mL Normal 30.00 - 100 [facility] Comment on above: Result Comment: 25-OHD3 indicates [...] D2 Not Established Performed By: #### 2 72934 #### [address] [address] Coronavirus 2019on 0 COVID 19 Result [employer] Normal Negative for COVID19 (SARS CoV2) by PCR. [facility] Comment on above: Result Comment: Negative for This test was developed and its performance characteristics determined by [facility]'s [facility] [place]. This test has been authorized by FDA [...] and its performance characteristics determined by [facility] [place]. This test has been authorized by FDA [...] and its performance characteristics determined by [facility] [place]. This test has been authorized by FDA under an Emergency Use Authorization (EUA). This test has been validated in accordance with the FDA's Guidance Document Policy for Diagnostics Testing in Laboratories Certified to Perform High Complexity Testing under CLIA prior to Emergency use Authorization for Coronavirus Disease 2019 during the Public Health Emergency issued on November 13, 2019. COVID 19 Source [employer] Normal [facility] Comment on above: Result Comment: Nasopharyngeal Corrected on 08/23 AT 0427: Previously reported as [employer] Swab Corrected on 08/23 AT 0427: Previously reported as [employer] Hemoglobin A1con 09-11-2019 HbA1c (Bld) [Mass fraction] 5.4 % Normal 4.3-5.6 [facility] Comment on above: Performed By: #### HBA1C #### [facility] Routine Lab [address] [place] [id number] HbA1c (Bld) [Mass fraction] 108 mg/dL Normal [facility] Comment on above: Performed By: #### HBA1C #### [facility] Routine Lab [address] [place] [address] Vital Signs Date Time Vital Sign Value Performing Clinician Facility 05-24-2025 10:040 Body height 163 cm Hans Velasquez MD Work Phone: [facility] 05-24-2025 10:260400 Body height 162.56 cm Hans Velasquez MD Work Phone: [facility] 05-24-2025 10:260400 Body mass index (BMI) [Ratio] 32.56 kg/m2 Hans Velasquez MD Work Phone: [facility] 05-24-2025 10:26-040 Body weight 86 kg Hans Velasquez MD Work Phone: [facility] 05-24-2025 10:26-0400 Body weight 85.73 kg Hans Velasquez MD Work Phone: [facility] 05-24-2025 10:26-0400 BP SITE #1 Hans Velasquez MD Work Phone: [facility] 05-24-2025 10:26-0400 Diastolic blood pressure 72 mm[Hg] Hans Velasquez MD Work Phone: [facility] 05-24-2025 10:26-0400 Heart rate 57 /min Hans Velasquez MD Work Phone: [facility] 05-24-2025 10:26-0400 HGHTCHNVIS Hans Velasquez MD Work Phone: [facility] 05-24-2025 10:26-0400 Systolic blood pressure 165 mm[Hg] Hans Velasquez MD Work Phone: [facility] 05-24-2025 10:26-0400 VITALSDONE Hans Velasquez MD Work Phone: [facility] 05-18-2025 14:55-0400 Body temperature 98.7 [degF] Dr. Erwin Zapata DO Work Phone: [facility] 05-18-2025 14:55-0400 Diastolic blood pressure 86 mm[Hg] Dr. Erwin Zapata DO Work Phone: [facility] 05-18-2025 14:55-0400 Heart rate 55 /min Dr. Erwin Zapata DO Work Phone: [facility] 05-18-2025 14:55-0400 Respiratory rate 18 /min Dr. Erwin Zapata DO Work Phone: [facility] 05-18-2025 14:55-0400 SaO2% (BldA) [Mass fraction] 100 % Dr. Erwin Zapata DO Work Phone: [facility] 05-18-2025 14:55-0400 Systolic blood pressure 175 mm[Hg] Dr. Erwin Zapata DO Work Phone: [facility] 05-18-2025 12:31-0400 Body height 165.[address] Erwin Zapata DO Work Phone: [facility] 05-18-2025 12:31-0400 Body mass index (BMI) [Ratio] 31.8 kg/m2 Dr. Erwin Zapata DO Work Phone: [facility] 05-18-2025 12:31-0400 Body weight 86.[address] Erwin Zapata DO Work Phone: [facility] Encounters Encounter Date Encounter Type Care Provider Facility Start: 05-24-2025 In-person encounter Hans castellano MD Work Phone: [facility] Work Phone: Start: 05-24-2025 Visit out of hours Hans duvall MD Work Phone: [employer] Group [facility]. Work Phone: Start: 05-18-2025 End: 05-18-2025 Emergency department patient visit Dr. Erwin Zapata DO Work Phone: -Emergency Department Work Phone: Start: 11-18-2024 ambulatory [facility] Start: 11-10-2024 ambulatory [facility] Start: 11-10-2024 Encounter for genera l adult medical examination without abnormal findings [facility] Start: 06-07-2024 ambulatory [facility] Start: 05-14-2024 End: 05-14-2024 ambulatory [facility] Start: 05-06-2024 End: 05-06-2024 ambulatory [facility] Start: 04-22-2024 End: 04-22-2024 ambulatory [facility] Start: 04-08-2024 End: 04-08-2024 ambulatory [facility] Start: 03-11-2024 End: 03-12-2024 ambulatory [facility] Start: 12-28-2023 End: 12-28-2023 Emergency department patient visit ERWIN KUHN [facility] Start: 11-07-2022 End: 11-07-2022 ambulatory [facility] Work Phone: Start: 11-07-2022 End: 11-07-2022 Patient encounter procedure [facility]-Radiology, [facility] Procedures Date Procedure Procedure Detail [...] Activity Detail Author Start: 05-24-2025 End: 05-24-2025 [employer] Work Phone: Start: 05-18-2025 [facility] Patient Education ED Shoulder Sprain [facility] Work Phone: Payers Date Payer Category Payer Self-pay [id number] 2025 Unknown [id number] 2021 Medicare [id number] 1955 Unknown [id number] 2.16.8 [id number] 1954 Unknown [id number] 2.16.8 [id number] 1954 Unknown [id number] 2.16.8 [id number] 1954 Unknown [id number] 2.16.8 40.1.228850.3.579.2.651 1954 Unknown [id number] 2.16.8 40.1.960519.3.579.2.651 1954 Unknown [id number] 2.16.8 40.1.489015.3.579.2.651 1954 Unknown [id number] 2.16.8 40.1.431397.3.579.2.651 1954 Unknown [id number] 2.16.8 40.1.833418.3.579.2.651 1954 Unknown [id number] 2.16.8 [id number] Unknown [id number] Unknown [facility] *DO NOT USE* [id number] Unknown [id number] 2.16.8 [id number] Social History Date Type Detail Facility Start: 03-20-2021 Tobacco smoking stat [facility] Unknown if ever smoked [facility] Start: 1955 Sex Assigned At Female [facility] Start: 05-18-2025 Tobacco smoking stat [facility] Ex-smoker (finding) [facility] Start: 05-24-2025 social history reviewed E[employer]M Done [employer] Work Phone: Start: 05-24-2025 Tobacco smoking status Never s moked any substance (finding) [employer] Work Phone: Radiology Diagnostic study note 05-18-2025 Note Date & Type Note Facility 05-18-2025 Radiology Diagnostic study note [facility] Services [address] [place] [address] [id number] Shoulder min 2 Views MR#: [id number] Acct: [id number] Name: DOROTHEA SILVA Rep #: [id number] : 1955 F 70 From: Raymundo Sarmiento MD PCP: Care Physician,No Primary Status: REG ER Study:Shoulder min 2 Views Date of Exam: 05/18/25 Exam# [id number] Ordering Dr: Erwin Zapata DO PROCEDURE: SHOULDER MIN 2 VIEWS 05/18/2025 REASON FOR EXAM: INJURY/PAIN TECHNIQUE: Procedure Code: RADSH Modality: DX Procedure: SHOULDER MIN 2 VIEWS Laterality: Left shoulder FINDINGS: Bones: No fracture. Joints: Normal alignment of the acromioclavicular and glenohumeral joints. Soft tissues: Soft tissues are unremarkable. Other: RAD/Shoulder min 2 Views IMPRESSION: NO ACUTE FRACTURE OR DISLOCATION. Reading Location: [facility] CC: Dr. Erwin Zapata, ; No Primary Care Physician ~ Acquisition Marketing Manager: Signed [facility] Evaluation note Note Date & Type Note Facility Evaluation note No assessment information availa ble [facility] Work Phone: Reason for referral (narrative) Note Date & Type Note Facility Reason for referral (narrative) No reason for referral information available [facility] Work Phone: Summary Purpose Family History No Family History Records Found Family Member Condition Mother Father Advance Directives No Advanced Directives Records Found Advance Directive Response Recorded Date/ Time Living Will No March 20, 2021 1 :09pm Power of Choir Leader No March 20, 2021 1:09pm Advance Directive Response Recorded Date/ Time Do you have a Healthcare Power of Choir Leader? No May 18, 2025 12:48pm Chief Complaint and Reason for Visit Chief Complaint DYSPHAGIA Chief Complaint Admit Date Shoulder pain May 18, 2025 12:31pm Additional Source Comments INFORMATION SOURCE (unrecogn ized section and content) DATE CREATED AUTHOR 08/25/2020 [facility] DATE CREATED AUTHOR AUTHOR'S ORGANIZ ATION 04/26/2024 [facility] DATE CREATED AUTHOR AUTHOR'S ORGANIZ ATION 11/20/2024 [facility] DATE CREATED AUTHOR AUTHOR'S ORGANIZ ATION 05/25/2025 [facility] Care Teams (unrecognized sec tion and [...] BE BASED ON THE PRIMARY CLINICAL RECORDS. [facility] [employer] [facility]. provides no warranty or guarantee of the accuracy or completeness of information in this document.
== END | disposition home or self-care (01) ==
LOC: LABSPEC 16:12
PROVIDERS: Referring Provider Physician Assistant Surgical; Visit Provider Physician Assistant Surgical
DX: M54.9 Dorsalgia, unspecified (principal)
CPT/HCPCS: 87086; 87088